=== PATIENT | male | born 1945 | race Two or more races ===

== ENCOUNTER 2019-11-12 15:10 | Emergency (ER) | payer MEDICARE, OTHER ==
[~2019-11-12] VITALS: Ht 165.1 cm; Wt 81.6 kg
[2019-11-12 20:13] VITALS: BP 146/125
[2019-11-12] MEDS ORDERED: LIDOCAINE 1% HCL (LOCAL ANESTH.) INJ 20ML MDV IJ ONE (20:30)
[2019-11-12] MEDS ORDERED: BACITRACIN TOP OINT 1 UD PKG TOP ONE (21:00)
== END 2019-11-12 21:47 | disposition home or self-care (01) ==
LOC: ER 15:10
DX: S61.217A Laceration without foreign body of left little finger without damage to nail, initial encounter (principal); S62.667A Nondisplaced fracture of distal phalanx of left little finger, initial encounter for closed fracture; E11.9 Type 2 diabetes mellitus without complications; W22.8XXA Striking against or struck by other objects, initial encounter; Y93.89 Activity, other specified; Y92.89 Other specified places as the place of occurrence of the external cause; Y99.8 Other external cause status
CPT/HCPCS: 12002; 29130; 73130; 99283; J2001